=== PATIENT | female | born 2000 | race Caucasian/White ===

== ENCOUNTER 2021-01-13 06:30 | Observation (INO) | payer OTHER, MEDICAID, SELFPAY ==
[2021-01-13] VITALS (7 sets, daily range): BP systolic 123–154; BP diastolic 60–90; PULSE 57–80; RESP 17–20; TEMP 36.4–37.3; O2SAT 97–100; BMI 39.4
[2021-01-13 07:03] LABS: Add Manual Diff / Slide Review NO; Basophils Absolute Auto 0 /uL (0-100); Basophils Percent Auto 0.3 % (0-2); Eosinophils Absolute Auto 0 /uL (0-450); Eosinophils Percent Auto 0.1 % (2-4); Hematocrit 39.2 % (36-46); Hemoglobin 13.1 g/dL (12.0-16.0); Lymphocytes Absolute Auto 1200 /uL (1100-4500); Lymphocytes Percent Auto 11.2 % (25-40); Mean Corpuscular HGB Conc 33.3 % (30-36); Mean Corpuscular Hemoglobin 29.2 PG (26-34); Mean Corpuscular Volume 87.7 fL (80-100); Monocytes Absolute Auto 400 /uL (0-900); Neutrophils Absolute Auto 9200 /uL (1500-7000); Neutrophils Percent Auto 84.4 % (50-75); Platelet Count 282 X10^3/uL (150-400); Red Blood Cell Count 4.47 X10^6/uL (4.0-5.2); Red Cell Distribution Width 13.7 % (11.6-14.8); White Blood Cell Count 10.9 X10^3/uL (4.5-11.0)
[2021-01-13] MEDS: SODIUM CHLORIDE 0.9% 1,000 ML 1000 ML IV (07:11)
[2021-01-13] MEDS: ONDANSETRON 4 MG/2 ML INJ IV ×2 (07:11→11:25)
[2021-01-13 07:15] LABS: Alanine Aminotransferase 26 IU/L (<35); Albumin 4.3 g/dL (3.5-5.0); Albumin Globulin Ratio 1.2 (1.0-2.8); Alkaline Phosphatase 56 U/L (38-126); Aspartate Aminotransferase 24 IU/L (14-36); BUN Creatinine Ratio 13.5 (6-22); Bilirubin Total 0.6 mg/dL (0.2-1.3); Blood Urea Nitrogen 7 mg/dL (7-17); Calcium 9.4 mg/dL (8.4-10.2); Carbon Dioxide 24 mmol/L (22-32); Chloride 105 mmol/L (98-107); Estimated Glomerular Filt Rate > 60.0 mL/min (>60); Globulin 3.5 g/dL (1.7-4.1); Glucose 112 mg/dL (70-100); Potassium 3.9 mmol/L (3.4-5.1); Sodium 138 mmol/L (137-145); Total Protein 7.8 g/dL (6.3-8.2)
[2021-01-13 07:18] LABS: Bacteria Urine None Seen; RBC Urine None Seen (0-5/HPF); WBC Urine None Seen (0-5/HPF)
[2021-01-13 07:22] LABS: HEMOLYSIS 23 (0-50); Ketones (Beta-Hydroxybutyrate) 0.18 mmol/L (<0.27)
[2021-01-13 07:23] LABS: Culture Indicated Urine Cult Not Indicated; Mucus Urine 3+ (Negative); Squamous Epithelial Cell Urine 1-5 /HPF (0-5/HPF)
--- NOTE | 2021-01-13 07:37 | ED.NAVMDI ---
HPI - Nausea/Vomiting/Diarrhea General Chief complaint: Nausea/Vomiting/Diarrhea Stated complaint: 5 weeks , vomiting puking blood Time Seen by Provider: 01/13/21 06:36 Source: patient Mode of arrival: Ambulatory Limitations: no limitations History of Present Illness HPI Narrative: Patient is a 20-year-old female. History of bipolar disorder. Is a at approximately 5 weeks EGA. Over the past week or so she has had episodes of nausea and vomiting and some diarrhea. Travel to another stay 1 month ago. No recent antibiotics. No vaginal bleeding. Is having some abdominal cramping related to the vomiting. Went to an outside clinic approximately 12 hours ago. Received antiemetics and also 2 L of fluid. She stated that very shortly after being discharged she started vomiting again of this continued overnight which brought her in the emergency department today. She has her 1st OB appointment in 2 days from now. Related Data Allergies Allergy/AdvReac Type Severity Reaction Status Date / Time amoxicillin Allergy Verified 01/13/21 06:44 Review of Systems Constitutional Constitutional: Reports system reviewed and no additional complaints, except as documented Cardiovascular Cardiovascular: Reports system reviewed and no additional complaints, except as documented Respiratory Respiratory: Reports system reviewed and no additional complaints, except as documented Gastrointestinal Gastrointestinal: Reports as per HPI Genitourinary Genitourinary: Reports system reviewed and no additional complaints, except as documented Integumentary/Breasts Skin/Breast: Reports system reviewed and no additional complaints, except as documented Neurologic Neurologic: Reports system reviewed and no additional complaints, except as documented Hematologic/Lymphatic On Anticoagulants: No Patient History Medical History Bipolar disorder Social History Smoking Status: Never smoker Smoking Status: Never smoker Substance Use Type: does not use Exam Initial Vital Signs Initial Vital Signs: Vital Signs Temperature 98.0 F 01/13/21 06:45 Pulse Rate 72 01/13/21 06:45 Respiratory Rate 17 01/13/21 06:45 Blood Pressure 154/77 H 01/13/21 06:45 Pulse Oximetry 99 01/13/21 06:45 Const General: cooperative and healthy appearing HENPR Head: normal to inspection and normocephalic Resp Effort & Inspection: normal respiratory effort Auscultation: clear to auscultation bilaterally Cardio Rate: regular rate Rhythm: regular rhythm GI Inspection: normal to inspection Palpation: soft, No guarding and tender (Generalized) Skin General: no rashes or lesions noted Neuro General: patient alert, patient awake and moves all extremities Extrem General: normal to inspection and capillary refill normal Psych Appearance: grossly normal and well kempt Course Orders Ordered: ED Orders 01/13/21 07:00 Complete Blood Count AUTO DIFF Stat Comprehensive Metabolic Panel Stat HCG Quantitative /Beta subunit Stat Ketones (Beta-Hydroxybutyrate) Stat 01/13/21 07:01 Urine Microscopic Stat 01/13/21 11:13 Consult to Physician Urgent 01/13/21 11:49 COVID19 - ADMIT (CREDIT HISTORIAN swab/PCR) Stat Sodium Chloride (Normal Saline 0.9%) 1,000 mls @ 150 mls/hr IV CONT BENNIE Last Infusion: 01/13/21 12:33 Dose: 0 mls/hr Documented by: Admin: 01/13/21 11:23 Dose: 150 mls/hr Documented by: YENI Ondansetron HCl (Ondansetron 4 Mg/2 Ml Inj) 4 mg IV Q4HR PRN PRN Reason: Nausea And Vomiting Last Admin: 01/13/21 11:25 Dose: 4 mg Documented by: YENI Discontinued Medications Sodium Chloride (Normal Saline 0.9%) 1,000 mls @ 1,000 mls/hr IV BOLUS ONE Stop: 01/13/21 07:42 Last Infusion: 01/13/21 08:08 Dose: 0 mls/hr Documented by: Admin: 01/13/21 07:11 Dose: 1,000 mls/hr Documented by: DAVID Ondansetron HCl (Ondansetron 4 Mg/2 Ml Inj) 4 mg IV NOW ONE Stop: 01/13/21 06:44 Last Admin: 01/13/21 07:11 Dose: 4 mg Documented by: DAVID Prochlorperazine (Prochlorperazine 10 Mg/2 Ml Vial) 5 mg IV NOW ONE Stop: 01/13/21 08:46 Last Admin: 01/13/21 08:59 Dose: 5 mg Documented by: YENI Promethazine HCl (Promethazine 25 Mg Supp) 25 mg HI NOW ONE Stop: 01/13/21 09:52 Last Admin: 01/13/21 09:58 Dose: 25 mg Documented by: AUPDIKE Vital Signs Vital signs: Vital Signs - 8 hr 01/13/21 06:45 01/13/21 09:06 01/13/21 09:07 Temperature 98.0 F Pulse Rate 72 Respiratory Rate 17 Blood Pressure 154/77 H 153/72 H Pulse Oximetry 99 97 100 MDM - Nausea/Vomiting/Diarrhea Lab Data Attestation: I reviewed the patient's lab results. Result diagrams: 01/13/21 07:00 01/13/21 07:00 Labs: Lab Results 01/13/21 01/13/21 01/13/21 Range/Units 07:00 07:00 07:00 WBC 10.9 (4.5-11.0) X10^3/uL RBC 4.47 (4.0-5.2) X10^6/uL Hgb 13.1 (12.0-16.0) g/dL Hct 39.2 (36-46) % MCV 87.7 (80-100) fL MCH 29.2 (26-34) PG MCHC 33.3 (30-36) % RDW 13.7 (11.6-14.8) % Plt Count 282 (150-400) X10^3/uL Neut % (Auto) 84.4 H (50-75) % Lymph % (Auto) 11.2 L (25-40) % [place] % (Auto) 4.0 (3-14) % Eos % (Auto) 0.1 L (2-4) % Baso % (Auto) 0.3 (0-2) % Neut # (Auto) 9200 H (1724-5267) /uL Lymph # (Auto) 1200 (7872-0085) /uL [place] # (Auto) 400 (0-900) /uL Eos # (Auto) 0 (0-450) /uL Baso # (Auto) 0 (0-100) /uL Sodium 138 (137-145) mmol/L Potassium 3.9 (3.4-5.1) mmol/L Chloride 105 (98-107) mmol/L Carbon Dioxide 24 (22-32) mmol/L BUN 7 (7-17) mg/dL Creatinine 0.52 (0.52-1.04) mg/dL Estimated GFR > 60.0 (>60) mL/min BUN/Creatinine Ratio 13.5 (6-22) Glucose 112 H (70-100) mg/dL Calcium 9.4 (8.4-10.2) mg/dL Total Bilirubin 0.6 (0.2-1.3) mg/dL AST 24 (14-36) IU/L ALT 26 (<35) IU/L Alkaline Phosphatase 56 (38-126) U/L Total Protein 7.8 (6.3-8.2) g/dL Albumin 4.3 (3.5-5.0) g/dL Globulin 3.5 (1.7-4.1) g/dL Albumin/Globulin Ratio 1.2 (1.0-2.8) HCG, Quant 28952 mIU/mL Urine RBC (0-5/HPF) Urine WBC (0-5/HPF) Ur Squamous Epith Cells (0-5/HPF) Urine Bacteria (None) Urine Mucus (Negative) Ur Culture Indicated? Ketones 0.18 (<0.27) mmol/L 01/13/21 Range/Units 07:01 WBC (4.5-11.0) X10^3/uL RBC (4.0-5.2) X10^6/uL Hgb (12.0-16.0) g/dL Hct (36-46) % MCV (80-100) fL MCH (26-34) PG MCHC (30-36) % RDW (11.6-14.8) % Plt Count (150-400) X10^3/uL Neut % (Auto) (50-75) % Lymph % (Auto) (25-40) % [place] % (Auto) (3-14) % Eos % (Auto) (2-4) % Baso % (Auto) (0-2) % Neut # (Auto) (8155-3456) /uL Lymph # (Auto) (2084-8670) /uL [place] # (Auto) (0-900) /uL Eos # (Auto) (0-450) /uL Baso # (Auto) (0-100) /uL Sodium (137-145) mmol/L Potassium (3.4-5.1) mmol/L Chloride (98-107) mmol/L Carbon Dioxide (22-32) mmol/L BUN (7-17) mg/dL Creatinine (0.52-1.04) mg/dL Estimated GFR (>60) mL/min BUN/Creatinine Ratio (6-22) Glucose (70-100) mg/dL Calcium (8.4-10.2) mg/dL Total Bilirubin (0.2-1.3) mg/dL AST (14-36) IU/L ALT (<35) IU/L Alkaline Phosphatase (38-126) U/L Total Protein (6.3-8.2) g/dL Albumin (3.5-5.0) g/dL Globulin (1.7-4.1) g/dL Albumin/Globulin Ratio (1.0-2.8) HCG, Quant mIU/mL Urine RBC None seen (0-5/HPF) Urine WBC None seen (0-5/HPF) Ur Squamous Epith Cells 1-5 /hpf (0-5/HPF) Urine Bacteria None seen (None) Urine Mucus 3+ H (Negative) Ur Culture Indicated? Cult not indicated Ketones (<0.27) mmol/L Urine Dip Bedside Urine Glucose Negative Bedside Urine Bilirubin + 1 Bedside Urine Ketone +++ 80 Urine Specific [place] 1.030 Bedside Urine Occult Blood - Negative Bedside Urine pH 6.0 Bedside Urine Protein + 30 Bedside Urine Urobilinogen 1+ 2mg Bedside Urine Nitrite - Negative Bedside Urine Leukocytes - Negative Esterase MDM Narrative Medical decision making narrative: Patient has received 3 different antiemetic medications and is still having quite a bit of nausea and is vomiting with any oral intake. Has received fluid. Vital signs unremarkable. Labs unremarkable. She is not having any vaginal bleeding nor vaginal discharge. Has yet to establish care with an OB provider. I suspect that her symptoms are hyperemesis gravidarum. Discussed the case with Dr. Ba on-call for OB service and will admit for further IV hydration and symptom treatment. Discussed this with the patient. She expressed understanding and agreement. Discharge Plan Departure Patient Disposition: Admitted as Observation Clinical Impression: Hyperemesis gravidarum Admit Date/Time: 01/13/21 12:25 Admit Provider: Peyton Ba
[2021-01-13] MEDS: PROCHLORPERAZINE 10 MG/2 ML VIAL 5 MG IV (08:59)
--- NOTE | 2021-01-13 09:34 | PC.NURSE ---
Informed MD of pt's SBPs being in the 150 range and yesterday it was 98systolic
[2021-01-13] MEDS: PROMETHAZINE 25 MG SUPP PR (09:58)
[2021-01-13 10:51] LABS: HCG Quantitative /Beta subunit 32117 mIU/mL
--- NOTE | 2021-01-13 11:18 | PC.NURSE ---
Pt has vomited again. made aware. Will admit
[2021-01-13] MEDS: SODIUM CHLORIDE 0.9% 1,000 ML 150 ML IV (11:23)
[2021-01-13 12:58] LABS: COVID19 - ADMIT (NP swab/PCR) Negative (Negative)
[2021-01-13 13:40] LABS: Phosphorous 3.1 mg/dL (4.5-5.5)
[2021-01-13] MEDS: ONDANSETRON 8 MG in SODIUM CHLORIDE 0.9% 50 ML 162 ML IV ×2 (14:46→21:13)
--- NOTE | 2021-01-13 16:31 | DIET.PN ---
Dietary Progress Note RD Note: Kitchen notified pt does not eat red meat and is lactose intolerant for when diet ordered.
--- NOTE | 2021-01-13 17:12 | PM.HP.1 ---
History of Present Illness History of Present Illness Date Patient Seen: 01/13/21 Time Patient Seen: 17:12 Chief complaint: 5 weeks , vomiting puking blood Narrative: 20-year-old at approximately 5 weeks gestational age per last menstrual period is admitted from the ED secondary to hyperemesis gravidarum. She has become increasingly nauseous over the last week and has had vomiting every 3 hours for the past 72 hours. She has not had an appetite during this time. She was seen at [facility] yesterday and received 2 L of fluid and antiemetics prior to discharge. When she got to her car, she vomited and has continued to vomit every 3 hours since then. This morning, when she vomited blood, she presented again to the emergency department for further assessment and treatment. Her OB provider is Dr. Liberty Yarbrough at the [facility], her OB intake appointment is in 2 days. No recent antibiotics. Nausea and vomiting is her main complaint, but she has had some minor, associated diarrhea, nothing in the last few days. No recent antibiotics. Had out of state travel approximately 1 month ago. Lives in house with her boyfriend, his brother and 2 roommates in [place]. Stopped smoking marijuana when she found out that she was . No alcohol or tobacco use. Denies abdominal cramping or vaginal bleeding. History of dystonic reaction with Reglan. Vital signs upon presentation to the emergency department included a temperature 99 ? F, pulse 72, respirations 17, and blood pressure 154/77. She was given a bolus of normal saline followed by 4 mg of Zofran, 5 mg of prochlorperazine, 25 mg rectal promethazine and an additional 4 mg of IV Zofran. While her nausea did improve, it did not resolve. Labs significant for 3+ ketonuria, and low phosphorus at 3.1. Quantitative hCG 32,117. Past medical history: Bipolar Disorder Anxiety Past surgical history: Tonsillectomy [place] teeth removal Family history: Mother: Cancer of unknown type, blood clots in brain Father: congestive heart failure, chronic pain Siblings: 5, healthy Social history: Lives with her boyfriend/FOB in house in [facility] along with his brother and 2 other roommates. Denies current alcohol, drug, or marijuana use. Stopped smoking marijuana when she found out that she was . Exposure to secondhand smoke. Patient History Medical History (Updated 01/13/21 @ 14:30 by Trang High RN) Anxiety Bipolar disorder Chicken pox Depression Surgical History (Updated 01/13/21 @ 14:31 by Trang High RN) Hx of tonsillectomy [place] teeth extracted Family & Social History Social History: household members significant other Prior Living Arrangements House Safety & Behavioral: Feels Safe in Current Yes Environment Been Physically Hurt or No Threatened By a Person Suicidal Ideation Description None Suicide Plan Description No Plan Tobacco & Substance use: Smoking Status Never smoker alcohol intake never Substance Use Type does not use Meds Home Medications and Allergies Home Medications Medication Instructions Recorded Confirmed Type clonidine HCl 0.3 mg tablet 0.3 mg PO BEDTIME 01/13/21 01/13/21 History promethazine 25 mg tablet 25 mg PO Q4HR PRN 01/13/21 01/13/21 History venlafaxine 75 mg capsule,extended 75 mg PO BEDTIME 01/13/21 01/13/21 History release 24 hr Allergies Allergy/AdvReac Type Severity Reaction Status Date / Time amoxicillin Allergy Severe Swelling Verified 01/13/21 15:25 of Lip/Tongue/Throat Review of Systems Review of Systems Narrative: Please see HPI. Exam Vital Signs (past 8 hours): - 01/13/21 12:28 01/13/21 13:00 01/13/21 16:43 Temperature 99.2 F 97.5 F L Pulse Rate 80 60 57 L Respiratory Rate 17 20 Blood Pressure 124/60 123/66 147/90 H Pulse Oximetry 100 100 100 Oxygen Delivery Method Room Air Oxygen Flow Rate 0 Narrative Exam Narrative: GENERAL: Alert and oriented, appearing stated age and in no acute distress. HEENT: Head normocephalic/atraumatic. LUNGS: Clear to ausculation bilaterally, no wheezes, rhonchi or rales. CV: Normal S1 and S2 with regular rate and rhythm, no audible murmurs, rubs or gallops. ABDOMEN: Soft, non-tender, non-distended, no organomegaly. Positive bowel sounds. EXTREMITIES: No clubbing, cyanosis, or edema. NEURO: Cranial nerves II through XII grossly intact, no focal deficits. PSYCH: Alert and oriented x 3. SKIN: No concerning lesions. Objective Labs Result Diagrams: 01/13/21 07:00 01/13/21 07:00 Labs: Laboratory Results - last 24 hr 01/13/21 01/13/21 01/13/21 07:00 07:00 07:00 WBC 10.9 RBC 4.47 Hgb 13.1 Hct 39.2 MCV 87.7 MCH 29.2 MCHC 33.3 RDW 13.7 Plt Count 282 Neut % (Auto) 84.4 H Lymph % (Auto) 11.2 L [place] % (Auto) 4.0 Eos % (Auto) 0.1 L Baso % (Auto) 0.3 Neut # (Auto) 9200 H Lymph # (Auto) 1200 [place] # (Auto) 400 Eos # (Auto) 0 Baso # (Auto) 0 Sodium 138 Potassium 3.9 Chloride 105 Carbon Dioxide 24 BUN 7 Creatinine 0.52 Estimated GFR > 60.0 BUN/Creatinine Ratio 13.5 Glucose 112 H Calcium 9.4 Phosphorus Magnesium Total Bilirubin 0.6 AST 24 ALT 26 Alkaline Phosphatase 56 Total Protein 7.8 Albumin 4.3 Globulin 3.5 Albumin/Globulin Ratio 1.2 HCG, Quant 05630 Urine RBC Urine WBC Ur Squamous Epith Cells Urine Bacteria Urine Mucus Ur Culture Indicated? Ketones 0.18 SARS-CoV-2 (PCR) 01/13/21 01/13/21 01/13/21 07:00 07:01 11:49 WBC RBC Hgb Hct MCV MCH MCHC RDW Plt Count Neut % (Auto) Lymph % (Auto) [place] % (Auto) Eos % (Auto) Baso % (Auto) Neut # (Auto) Lymph # (Auto) [place] # (Auto) Eos # (Auto) Baso # (Auto) Sodium Potassium Chloride Carbon Dioxide BUN Creatinine Estimated GFR BUN/Creatinine Ratio Glucose Calcium Phosphorus 3.1 L Magnesium 2.0 Total Bilirubin AST ALT Alkaline Phosphatase Total Protein Albumin Globulin Albumin/Globulin Ratio HCG, Quant Urine RBC None seen Urine WBC None seen Ur Squamous Epith Cells 1-5 /hpf Urine Bacteria None seen Urine Mucus 3+ H Ur Culture Indicated? Cult not indicated Ketones SARS-CoV-2 (PCR) Negative Assessment & Plan Assessment & Plan narrative: 1. at 5 WGA per LMP 2. Hyperemesis gravidarum 3. Bipolar disorder 4. Anxiety Plan: Patient has received 2 L of normal saline, urine is still concentrated, phosphorus is low. -Will give a banana bag to replete vitamins and phosphorus prior to proceeding with maintenance fluids. -GI rest/NPO overnight. -Will recheck labs in the morning and likely switch to D51/2NS + 20 KCl at 150 cc/hour at that point. -Will continue with thiamine 100 mg IV qd x 2-3 days if needed. -Will continue MVI 10 mL + folic acid 0.6 mg IV qd. -Will continue Vitamin B6 25 mg with each liter of IVF. -Will replete calcium, magnesium, and phosphorus as needed. -Continue zofran 8 mg IV q8 hours scheduled. -Plan to advance to BRAT diet tomorrow if nausea improved. -Will resume home medications when able to take PO. DVT prophylaxis: SCDs Code: Full Disposition: Anticipate 2 nights COVID: Negative Quality VTE Deep Vein Thrombosis/Pulmonary Embolism Present on Admission: No
[2021-01-13] MEDS: POTASSIUM PHOSPHATE IV (19:05)
[2021-01-13] MEDS: MULTIVITAMIN IV (19:05)
[2021-01-13] MEDS: THIAMINE IV (19:05)
[2021-01-13] MEDS: FOLIC ACID IV (19:05)
[2021-01-13] MEDS: [UNRECOGNIZED DRUG - OTHER] IV (19:05)
[2021-01-13] MEDS: PYRIDOXINE 100 MG/ML VIAL 25 MG IV (19:06)
--- NOTE | 2021-01-14 02:20 | PC.NURSE ---
Addendum entered by Nadiya Dominguez R.N. 01/14/21 06:04: Rate was increased to 70 mL/hr at 0600. Addendum entered by Nadiya Dominguez R.N. 01/14/21 05:23: Rate on K rider was increased to 65 mL/hr when new bag was hung and patient seems to be tolerating it okay with a warm blanket wrapped around her arm. Will continue to monitor and decrease rate it needed. Addendum entered by Nadiya Dominguez R.N. 01/14/21 04:17: Patient was complaining of the IV site burning after the K rider was started, rate was slowed to 75 mL/hr but the patient still complained. Rate was set for 50 mL/hr and the patient tolerated well. Next dose will be hung late due to current rate going at half the ordered rate. Will continue to monitor and try to increase rate periodically. Original Note: Called Dr. Ba at 0205 to clarify if the patient needs to continue fluids and what fluids after the banana bag is finished. Verbal orders for D5 1/2 NS at 125 mL/hr and a rider of 20 K at 125 mL/hr were given. Patient has had intermittent vomiting episodes ranging from 25 cc to 150 cc since the start of shift. Patient did tell this RN that she tried to drink Apple juice at 2200 but threw it up after. This RN reminded the patient that she is NPO and should not be taking anything by mouth. Patient stated she understood. This RN did not remove the drinks from the room as the patient and her boyfriend stated they were for him and he would not give her any. This RN reiterated how important it is that she does not take anything by mouth and verbal understanding was given by the patient and boyfriend.
[2021-01-14] MEDS: DEXTROSE 5%-0.45% NS 1,000 ML 125 ML IV ×2 (03:43→21:52)
[2021-01-14] MEDS: POTASSIUM CHLORIDE IN WATER 10 MEQ/100 ML PIGGYBACK 100 MEQ IV (03:43)
[2021-01-14] MEDS: POTASSIUM CHLORIDE IN WATER 10 MEQ/100 ML PIGGYBACK 65 MEQ IV (05:20)
[2021-01-14 06:29] LABS: Add Manual Diff / Slide Review NO; Basophils Absolute Auto 100 /uL (0-100); Basophils Percent Auto 0.6 % (0-2); Eosinophils Absolute Auto 0 /uL (0-450); Eosinophils Percent Auto 0.2 % (2-4); Hematocrit 32.6 % (36-46); Hemoglobin 10.8 g/dL (12.0-16.0); Lymphocytes Absolute Auto 1700 /uL (1100-4500); Lymphocytes Percent Auto 18.4 % (25-40); Mean Corpuscular HGB Conc 33.2 % (30-36); Mean Corpuscular Hemoglobin 29.2 PG (26-34); Mean Corpuscular Volume 87.9 fL (80-100); Monocytes Absolute Auto 400 /uL (0-900); Monocytes Percent Auto 4.8 % (3-14); Neutrophils Absolute Auto 7100 /uL (1500-7000); Platelet Count 232 X10^3/uL (150-400); Red Blood Cell Count 3.71 X10^6/uL (4.0-5.2); Red Cell Distribution Width 13.8 % (11.6-14.8); White Blood Cell Count 9.3 X10^3/uL (4.5-11.0)
[2021-01-14 06:45] LABS: Alanine Aminotransferase 23 IU/L (<35); Albumin 3.5 g/dL (3.5-5.0); Albumin Globulin Ratio 1.3 (1.0-2.8); Alkaline Phosphatase 41 U/L (38-126); Aspartate Aminotransferase 26 IU/L (14-36); BUN Creatinine Ratio 5.6 (6-22); Bilirubin Total 0.5 mg/dL (0.2-1.3); Blood Urea Nitrogen 3 mg/dL (7-17); Calcium 8.6 mg/dL (8.4-10.2); Carbon Dioxide 22 mmol/L (22-32); Chloride 108 mmol/L (98-107); Estimated Glomerular Filt Rate > 60.0 mL/min (>60); Globulin 2.8 g/dL (1.7-4.1); Glucose 110 mg/dL (70-100); HEMOLYSIS < 15 (0-50); Magnesium 1.9 mg/dL (1.6-2.3); Phosphorous 3.6 mg/dL (4.5-5.5); Potassium 3.8 mmol/L (3.4-5.1); Sodium 137 mmol/L (137-145); Total Protein 6.3 g/dL (6.3-8.2)
[2021-01-14] MEDS: ONDANSETRON 8 MG in SODIUM CHLORIDE 0.9% 50 ML 162 ML IV ×3 (06:55→20:33)
--- NOTE | 2021-01-14 06:58 | PM.PN.1 ---
Subjective Subjective Date Patient Seen: 01/14/21 Time Patient Seen: 06:59 Interval history: Patient had an uneventful night and did not feel nauseated. However, this morning began getting nauseated again and when her boyfriend was eating breakfast, she did have emesis x1. She is now feeling better. Does not have an appetite. Denies abdominal pain. Ambulating up to the bathroom, urine is less concentrated. Exam Vital Signs (past 8 hours): - 01/13/21 23:36 Temperature 98.9 F Pulse Rate 70 Respiratory Rate 18 Blood Pressure 136/67 Pulse Oximetry 100 Oxygen Delivery Method Room Air Oxygen Flow Rate 0 Narrative Exam Narrative: GENERAL: Alert and oriented, appearing stated age and in no acute distress. HEENT: Head normocephalic/atraumatic. LUNGS: Clear to ausculation bilaterally, no wheezes, rhonchi or rales. CV: Normal S1 and S2 with regular rate and rhythm, no audible murmurs, rubs or gallops. ABDOMEN: Soft, non-tender, non-distended, no organomegaly. Positive bowel sounds. EXTREMITIES: No clubbing, cyanosis, or edema. NEURO: Cranial nerves II through XII grossly intact, no focal deficits. PSYCH: Alert and oriented x 3. SKIN: No concerning lesions. Objective Labs Result Diagrams: 01/14/21 05:06 01/14/21 05:06 Labs: Laboratory Results - last 24 hr 01/13/21 01/13/21 01/13/21 07:00 07:00 07:00 WBC 10.9 RBC 4.47 Hgb 13.1 Hct 39.2 MCV 87.7 MCH 29.2 MCHC 33.3 RDW 13.7 Plt Count 282 Neut % (Auto) 84.4 H Lymph % (Auto) 11.2 L [place] % (Auto) 4.0 Eos % (Auto) 0.1 L Baso % (Auto) 0.3 Neut # (Auto) 9200 H Lymph # (Auto) 1200 [place] # (Auto) 400 Eos # (Auto) 0 Baso # (Auto) 0 Sodium 138 Potassium 3.9 Chloride 105 Carbon Dioxide 24 BUN 7 Creatinine 0.52 Estimated GFR > 60.0 BUN/Creatinine Ratio 13.5 Glucose 112 H Calcium 9.4 Phosphorus Magnesium Total Bilirubin 0.6 AST 24 ALT 26 Alkaline Phosphatase 56 Total Protein 7.8 Albumin 4.3 Globulin 3.5 Albumin/Globulin Ratio 1.2 HCG, Quant 77994 Urine RBC Urine WBC Ur Squamous Epith Cells Urine Bacteria Urine Mucus Ur Culture Indicated? Ketones 0.18 SARS-CoV-2 (PCR) 01/13/21 01/13/21 01/13/21 07:00 07:01 11:49 WBC RBC Hgb Hct MCV MCH MCHC RDW Plt Count Neut % (Auto) Lymph % (Auto) [place] % (Auto) Eos % (Auto) Baso % (Auto) Neut # (Auto) Lymph # (Auto) [place] # (Auto) Eos # (Auto) Baso # (Auto) Sodium Potassium Chloride Carbon Dioxide BUN Creatinine Estimated GFR BUN/Creatinine Ratio Glucose Calcium Phosphorus 3.1 L Magnesium 2.0 Total Bilirubin AST ALT Alkaline Phosphatase Total Protein Albumin Globulin Albumin/Globulin Ratio HCG, Quant Urine RBC None seen Urine WBC None seen Ur Squamous Epith Cells 1-5 /hpf Urine Bacteria None seen Urine Mucus 3+ H Ur Culture Indicated? Cult not indicated Ketones SARS-CoV-2 (PCR) Negative 01/14/21 01/14/21 05:06 05:06 WBC 9.3 RBC 3.71 L Hgb 10.8 L Hct 32.6 L MCV 87.9 MCH 29.2 MCHC 33.2 RDW 13.8 Plt Count 232 Neut % (Auto) 76.0 H Lymph % (Auto) 18.4 L [place] % (Auto) 4.8 Eos % (Auto) 0.2 L Baso % (Auto) 0.6 Neut # (Auto) 7100 H Lymph # (Auto) 1700 [place] # (Auto) 400 Eos # (Auto) 0 Baso # (Auto) 100 Sodium 137 Potassium 3.8 Chloride 108 H Carbon Dioxide 22 BUN 3 L Creatinine 0.54 Estimated GFR > 60.0 BUN/Creatinine Ratio 5.6 L Glucose 110 H Calcium 8.6 Phosphorus 3.6 L Magnesium 1.9 Total Bilirubin 0.5 AST 26 ALT 23 Alkaline Phosphatase 41 Total Protein 6.3 Albumin 3.5 Globulin 2.8 Albumin/Globulin Ratio 1.3 HCG, Quant Urine RBC Urine WBC Ur Squamous Epith Cells Urine Bacteria Urine Mucus Ur Culture Indicated? Ketones SARS-CoV-2 (PCR) [facility] Medical History (Updated 01/13/21 @ 14:30 by Trang High RN) Anxiety Bipolar disorder Chicken pox Depression Surgical History (Updated 01/13/21 @ 14:31 by Trang High RN) Hx of tonsillectomy [place] teeth extracted Social History household members: significant other and friend(s) Smoking Status: Never smoker alcohol intake: never Assessment & Plan Assessment & Plan narrative: 1. at 5 WGA per LMP 2. Hyperemesis gravidarum with hypophosphotemia 3. Bipolar disorder 4. Anxiety Plan: -Will continue with IV fluid and electrolyte replacement. -Continue NPO. -Will add prochlorperazine 10 mg IV x 1 now and q6 hour prn, thereafter. -Continue zofran 8 mg IV q 8 hours scheduled. -Plan to advance to BRAT diet tomorrow if nausea improved. -Will resume home medications when able to take PO. DVT prophylaxis: SCDs Code: Full COVID: Negative Quality VTE Deep Vein Thrombosis/Pulmonary Embolism Present on Admission: No
[2021-01-14 07:00] VITALS: BP 133/84; PULSE 70; RESP 17; TEMP 36.5; O2SAT 99
[2021-01-14] MEDS: PYRIDOXINE 100 MG/ML VIAL 25 MG IV (08:22)
[2021-01-14] MEDS: [UNRECOGNIZED DRUG - OTHER] IV (09:50)
[2021-01-14] MEDS: PROCHLORPERAZINE 10 MG/2 ML VIAL IV ×2 (09:50→21:52)
[2021-01-14] MEDS: THIAMINE IV (09:50)
[2021-01-14] MEDS: MULTIVITAMIN IV (09:50)
[2021-01-14] MEDS: MAGNESIUM SULFATE IV (09:50)
[2021-01-14] MEDS: FOLIC ACID IV (09:50)
--- NOTE | 2021-01-14 11:21 | CM.DANOTE ---
Addendum entered by CANDE Warner 01/14/21 15:09: ADD: SW met bedside with pt and Sig Other and explained role and they confirm they live in [place] but [facility] [place] [facility] and first appointment is via VideoPhone tomorrow. Pt feeling much better after Zofran and they state they found out they were a week ago and excited but a little overwhelmed. Pt's sister just had a baby a year ago and pt is aware of and realizes she is higher risk due to her bipolar dx. Pt states they plan to keep the baby. SW provided a list of local resources including Maternity Support Services, WIC, etc.. and encouraged her to sign up for resources prior to baby delivery. Tiffanie with Dietary to meet with pt next regarding helpful diet recommendations during gestation/. Sig Other confirms that he will remain bedside and provide transport at d/c and roommates are also quite supportive. BF Original Note: Patient is a 20 year old female who was admitted on 01/13/21 for V/N and . Pt has [facility] and [employer] for insurance and her PCP is Dr. Peyton Ba and her LINUX DEVOPS ENGINEER is Dr. Liberty Yarbrough at [facility]. EMR was reviewed. Per MD, pt is 5 weeks with care established and currently with significant hyperemesis gravidarum. Per RN, pt with significant nausea and vomiting right now and not likely to be medically appropriate for bedside assessment yet at this time. Pt lives in [place] with her sig other/FOB and some roommates and pt active and independent at baseline. This is pt's first and SW to attempt bedside later today when more medically stable to determine any d/c planning needs and provide /baby resources if needed. CANDE Warner Discharge Planning/Care Management CM Discharge Assessment Start: 01/14/21 11:19 Freq: Status: Active Protocol: Document 01/14/21 11:19 (Rec: 01/14/21 11:21 [id number]) Discharge Planning Assessment Assigned Nanotechnology Engineering Technician CANDE Robison DPOA/Assigned Designee Name informally mother Mary Alice Contact Information [phone] Advance Directives? No Advance Directives on File No History Provided By Patient,Significant Other, Medical Record Has Patient been admitted in last 30 No days? Prior Living Arrangements House Household Members significant other,friend(s) Type of transporation used prior to Drives own vehicle admit Comment Lives with Sig Other and roommates in [place] Independent with ADL's Yes Is patient alert and oriented? Yes Caregiver for Another No Barriers to Discharge No Discharge Plan Home Transportation Arrangement Family or Sig Other can provide transport Referrals Initiated None needed Review Status In Process Please Provide Date Initial DC 01/14/21 Assessment Was Performed Next Review Type Continued Stay Review
[2021-01-14 15:15] VITALS: BP 148/79; PULSE 77; RESP 18; TEMP 36.6; O2SAT 100
--- NOTE | 2021-01-14 15:39 | DIET.PN ---
Dietary Progress Note Assessment: 20y F admitted for intractable N/V likely (hyperemesis gravidarum) as pt recently found out she is 5w . Visited c pt in hospital bed accompanied by SO. Pt feeling much better now that she has received IV fluids, electrolytes, and anti-nausea meds. Pt remains NPO to be transitioned to BRAT diet when wretching subsides. Pt has vitamins at bedside asking when she can start taking. Reassured pt she is receiving these vitamins and minerals via IV. Pt does not eat red meat and is lactose intolerant. Pt dislikes nuts but does like peanut butter. Pt drinks fortified almond milk but no other calcium rich foods. Pts vitamin provides >100% DRI folic acid, 100% iron, <20% calcium and magnesium. HT: 165cm WT: 107.5kg BMI: 39 Labs:hgb 10.8 L, phos 3.6 L Nutrition Diagnosis: inadequate intake minerals (magnesium, calcium) r/t general eating habits aeb pt is lactose intolerant, dislikes nuts, pts vitamin provides <20% DRI for magnesium and calcium, pt is 5w . Interventions: 1. Provided pt handout and reccs for N/V nutrition therapy, morning sickness nutrition therapy. Recc pt eat small amounts of low fat, bland foods for next few days. 2. Provided pt copy of [facility] Plate c reccs for nutrition, food safety, and snack ideas. 3. Reviewed pts vitamin. Recc pt start calcium chew daily and increase magnesium intake via supplement or if she likes almond butter eating in addition to peanut butter. Recc she review these c OB at appt tomorrow. Diet Order: NPO
[2021-01-14] MEDS: MORPHINE 2 MG/ML INJ 1 MG IV (20:20)
[2021-01-14 23:35] VITALS: BP 147/89; PULSE 80; RESP 18; TEMP 36.7; O2SAT 100
--- NOTE | 2021-01-15 00:08 | PC.NURSE ---
The patient made her own decision to leave against medical advise at 0005. The AMA form has been filled out, signed by the patient and the RN, and placed in the patient's chart. She stated she is feeling anxious and that she hasn't had her bipolar medications in two days. She also stated that she was told by her provider that she couldn't have them here. RN explained to her the risks of leaving, but she said she will feel much better at home. The on-call physician was called at approximately 0000 to inform him of her decision. The on-call physician has not returned my call at this time(0015), and the patient was not willing to wait on him to call. RN will call the on-call physician again at this time to inform him of the patient's decision to leave and inform him that she has already left the facility.
--- NOTE | 2021-01-15 00:27 | CM.DPNOTE ---
patient left against medical advise
--- NOTE | 2021-01-15 01:04 | PC.NURSE ---
I called the on-call physician again at approximately 0045 to inform him the patient left AMA. He has not returned either call at this time.
--- NOTE | 2021-01-15 02:45 | PC.NURSE ---
I called the on-call physician to inform him the patient left against medical advise..this was the third attempt to reach him...no response from him at this time.
--- NOTE | 2021-01-21 18:19 | PC.NURSE ---
Late Entry; NS infusion initiated 01/13 at 11:23, stopped by MD order at 18:16.
== END 2021-01-15 00:05 | disposition home or self-care (01) ==
LOC: ED 12:24 → AC 12:27
PROVIDERS: Emergency Medicine; Admitting Provider Student in an Organized Health Care Education/Training Program; Emergency Provider Emergency Medicine; Referring Provider Emergency Medicine; Visit Provider Student in an Organized Health Care Education/Training Program
DX: O21.0 Mild hyperemesis gravidarum (principal); R19.7 Diarrhea, unspecified; Z3A.01 Less than 8 weeks gestation of pregnancy; O99.341 Other mental disorders complicating pregnancy, first trimester; F41.8 Other specified anxiety disorders; F31.9 Bipolar disorder, unspecified; Z20.822 Contact with and (suspected) exposure to COVID-19
CPT/HCPCS: 36415; 80053; 81003; 81015; 82009; 83735; 84100; 84702; 85025; 87635; 96361; 96365; 96366; 96367; 96375; 96376; 99284; C9803; G0378; J0780; J2270; J2405; J3475